=== PATIENT | male | born 1950 | race Caucasian/White ===

== ENCOUNTER 2017-11-04 16:51 | Emergency (ER) | payer OTHER, BC ==
[2017-11-04] MEDS ORDERED: ceFAZolin 2 GM/DEXTROSE 100 ML IV ONE (17:03)
--- NOTE | 2017-11-04 17:07 | EDPHY ---
H & P Time Seen by Provider: 11/04/17 16:57 HPI/ROS: CHIEF COMPLAINT: Left hand injury HISTORY OF PRESENT ILLNESS: Patient was using a chop saw at 4:00 p.m. When he accidentally cut his left index finger and thumb, amputating thumb at the IP joint. He also lacerated the index finger in a flap type laceration distally base on the radial side extending from the D IP to the PIP on the volar side. Denies other injuries or foreign body sensation, has minimal pain right now. REVIEW OF SYSTEMS: Eye: No symptoms ENT: No recent symptoms Cardiac: No chest pain Pulmonary: No coughing or short of breath Abdomen: No abdominal pain or nausea Musculoskeletal: HPI Skin: HPI Neuro: Denies weakness or numbness in the index finger distally Constitutional: no fever or recent illness : no urinary symptoms A comprehensive 10 point review of systems is otherwise negative aside from elements mentioned in the history of present illness. PAST MEDICAL HISTORY: Hyperlipidemia, tetanus up-to-date Social history: Wood worker visiting from [facility] General Appearance: Alert and conversant, cooperative. Eyes: No scleral icterus. ENT, Mouth: Normal mucous membranes. Respiratory: Normal respiratory effort, breath sounds equal, lungs are clear to auscultation. Cardiovascular: Regular rate and rhythm. Gastrointestinal: Abdomen is soft and non tender. Neurological: Alert, cooperative, ambulatory. Decreased sensation on the radial side of the left index finger. Skin: Laceration on the left index finger distally based flap extending from the D IP to the PIP on the volar side. He can flex and extend the left index finger. Musculoskeletal: Left thumb amputation through the IP joint. Psychiatric: Not agitated. Emergency Department course/MDM: The amputated thumb part was wrapped in dry sterile gauze and placed on ice. It was transported with the patient with a computer disc of his x-rays. Ancef 2 g IV, made NPO. Tetanus up-to-date. X-ray ordered. Consultation with [facility] for consideration of replant of thumb at 5:06 p.m., Dr. Hyman accepts in transfer for specialized hand surgery replant specialist/microvascular library sales consultant not available at [facility], stable for transfer. Also discussed with Stephon from ED, accepts and patient will go to Ed. Reason for transfer discussed with patient and , microvascular and reimplantation specialist not available at this campus. Warned them that reattachment of the amputated part is up to the library sales consultant at [facility], it is possible they may recommend that reattachment is not appropriate. Critical care time spent by me, Dr. Bowers, exclusively with the care of this patient was 20 minutes, exclusive of PA or LAUNDRY EQUIPMENT OPERATOR time and exclusive of separate procedures. The organ system at risk was orthopedic and I ordered IV antibiotics and consultation with replant specialist to stabilize the patient and prevent worsening of the patient's condition. Smoking Status: Never smoked Constitutional: Initial Vital Signs Temperature (C) 36.7 C 11/04/17 17:00 Heart Rate 110 H 11/04/17 17:00 Respiratory Rate 15 11/04/17 17:00 Blood Pressure 167/87 H 11/04/17 17:00 O2 Sat (%) 99 11/04/17 17:00 O2 Delivery Mode Room Air Allergies/Adverse Reactions: No Known Allergies Allergy (Unverified 11/04/17 16:59) Home Medications: Medication Instructions Recorded SIMVASTATIN 11/04/17 Medical Decision Making - Diagnostics Imaging Results: Imaging Impressions Hand X-Ray 11/04/17 17:03 Impression: 1. Amputation of the distal thumb from the level of the base of the distal phalanx. 2. Partial amputation of the second digit with fracture fragments around the DIP joint along the lateral aspect and disruption of the soft tissues. Imaging: I viewed and interpreted images myself Differential Diagnosis: Differential for finger injury considered including but not limited to amputation, laceration, fracture, nerve or tendon injury. - Data Points Medications Given: Discontinued Medications Cefazolin Sodium (Cefazolin Syringe) 2 gm in 20 mls @ 40 mls/hr IVP EDNOW ONE PRN Reason: Protocol Stop: 11/04/17 17:59 Last Admin: 11/04/17 17:40 Dose: 20 mls Departure - Departure Disposition: Acute Care Hospital Not [facility] Clinical Impression: Amputation, thumb, traumatic Qualifiers: Encounter type: initial encounter Laterality: left Qualified Code(s): S68.012A - Complete traumatic metacarpophalangeal amputation of left thumb, initial encounter Laceration of index finger Qualifiers: Encounter type: initial encounter Damage to nail status: without damage Foreign body presence: unspecified Laterality: left Qualified Code(s): S61.211A - Laceration without foreign body of left index finger without damage to nail, initial encounter Condition: Good Referrals: EDER KELLY MD [Other] - As per Instructions
[2017-11-04] MEDS ORDERED: ceFAZolin 2 GM/SWFI 2 GM/20 ML SYR IVP ONE (17:30)
[2017-11-04 17:47] VITALS: BP 148/76; PULSE 89; RESP 18; TEMP 98.6; O2SAT 98
== END 2017-11-04 17:35 | disposition short-term general hospital (02) ==
DX: S61.211A Laceration without foreign body of left index finger without damage to nail, initial encounter (principal); S68.512A Complete traumatic transphalangeal amputation of left thumb, initial encounter; W31.2XXA Contact with powered woodworking and forming machines, initial encounter; Y99.8 Other external cause status; Y93.89 Activity, other specified
CPT/HCPCS: 73130; 96374; 99285; J0690